=== PATIENT | male | born 1995 | race Two or more races ===

== ENCOUNTER 2018-05-31 08:48 | Emergency (ER) | payer SELFPAY ==
[2018-05-31] MEDS ORDERED: CEPHALEXIN 500 MG CAPSULE PO ONE (09:20)
[2018-05-31] MEDS ORDERED: DIPH/PERTUSS(ACELL)/TETANUS VAC/PF 0.5 ML SYR (>=10YO) IM ONE (09:20)
[2018-05-31] MEDS ORDERED: IBUPROFEN 800 MG TABLET PO ONE (09:20)
--- NOTE | 2018-05-31 09:22 | ER Document Report ---
HPI - HPI Patient complains to provider of: Puncture wound to foot Onset: Yesterday Onset/Duration: Sudden Quality of pain: Achy Pain Level: 4 Context: Patient states that he was on a deck and accidentally engaged a nail gun shooting the top of his foot through his tennis shoe into his foot. Patient states he did feel like the nail got stuck within the foot bone. Patient was wearing cloth shoes. Associated Symptoms: Other - Actual wound to dorsal aspect of right foot Exacerbated by: Standing, Movement, Walking Relieved by: Denies Similar symptoms previously: No Recently seen / treated by doctor: No - ROS ROS below otherwise negative: Yes Systems Reviewed and Negative: Yes All other systems reviewed and negative - CONSTITUTIONAL Constitutional: DENIES: Fever, Chills - NEURO Neurology: DENIES: Weakness - MUSCULOSKELETAL Musculoskeletal: REPORTS: Extremity pain - right foot. DENIES: Swelling - DERM Skin Color: Normal Skin Problems: Puncture Wound Past Medical History - General Information source: Patient - Social History Smoking Status: Current Every Day Smoker Smoking Education Provided: Yes Frequency of alcohol use: None Drug Abuse: Marijuana Occupation: [employer] Lives with: Family Family History: Reviewed & Not Pertinent Patient has suicidal ideation: No Patient has homicidal ideation: No Pulmonary Medical History: Reports: Hx Asthma Renal/ Medical History: Denies: Hx Peritoneal Dialysis Surgical Hx: Negative Vertical Provider Document - CONSTITUTIONAL Agree With Documented VS: Yes Exam Limitations: No Limitations General Appearance: WD/WN, No Apparent Distress - INFECTION CONTROL TRAVEL OUTSIDE OF THE [place] IN LAST 30 DAYS: No - HEENT HEENT: Atraumatic, Normocephalic - NECK Neck: Normal Inspection - RESPIRATORY Respiratory: No Respiratory Distress - CARDIOVASCULAR Pulses: Normal: Dorsalis pedis - MUSCULOSKELETAL/EXTREMETIES Musculoskeletal/Extremeties: MAEW, Tender - Patient with right foot tenderness to dorsal foot, patient with puncture wound, no surrounding erythema, No Edema. negative: Eccymosis - NEURO Level of Consciousness: Awake, Alert, Appropriate Motor/Sensory: No Motor Deficit - DERM Integumentary: Warm, Dry Notes: PW to dorsal aspect of right foot Course - Re-evaluation Re-evalutation: 05/31/18 Patient with puncture wound to dorsal aspect of right foot, no visible foreign body. No cellulitis at this time. Discussed with patient concern about possible open fracture given radiology findings. Patient encouraged to follow- up with orthopedics for further evaluation. Good return precautions discussed. - Vital Signs Vital signs: Temp Pulse Resp BP Pulse Ox 97.9 F 59 L 16 149/76 H 100 05/31/18 08:54 05/31/18 08:54 05/31/18 08:54 05/31/18 08:54 05/31/18 08:54 - Diagnostic Test Radiology reviewed: Pending, Image reviewed Discharge - Discharge Clinical Impression: Puncture wound of foot Qualifiers: Encounter type: initial encounter Laterality: right Qualified Code(s): S91.331A - Puncture wound without foreign body, right foot, initial encounter Foot fracture, right Qualifiers: Encounter type: initial encounter Fracture type: open Qualified Code(s): S92.901B - Unspecified fracture of right foot, initial encounter for open fracture Condition: Stable Disposition: HOME, SELF-CARE Instructions: Cephalexin ([facility]), Dressing Instructions for Open Wounds ([facility]), Fracture ([facility]), Oral Narcotic Medication ([facility]) Additional Instructions: Return immediately for any new or worsening symptoms Followup with your primary care provider, call tomorrow to make a followup appointment Follow-up with orthopedics for further evaluation, call today for an appointment. Return immediately for any increased pain, fever, purulent drainage, redness or any concerning symptoms. Prescriptions: Cephalexin Monohydrate [Keflex 500 mg Capsule] 500 mg PO Q6H 5 Days capsule Hydrocodone/Acetaminophen [[place] 5-325 mg Tablet] 1 tab PO Q6 PRN #15 tablet PRN Reason: Forms: Smoking Cessation Education, Return to Work Referrals: [facility] [Provider Group] - Follow up tomorrow
--- NOTE | 2018-05-31 10:50 | RADIOLOGY REPORT (SQ) ---
EXAM DESCRIPTION: FOOT RIGHT COMPLETE COMPLETED DATE/TIME: 05/31/2018 10:13 am REASON FOR STUDY: nail gun, nail to dorsal foot COMPARISON: None. NUMBER OF VIEWS: Three views. TECHNIQUE: AP, lateral and oblique radiographic images acquired of the right foot. LIMITATIONS: None. FINDINGS: MINERALIZATION: Normal. BONES: No acute fracture or dislocation. No worrisome bone lesions. JOINTS: No effusions. SOFT TISSUES: No soft tissue swelling. No foreign body. OTHER: No other significant finding. IMPRESSION: NEGATIVE STUDY OF THE RIGHT FOOT. NO RADIOGRAPHIC EVIDENCE OF ACUTE INJURY. TECHNICAL DOCUMENTATION: JOB ID: [id number] [employer]- All Rights Reserved Reading location - IP/workstation name: [email or web address]
[2018-05-31 11:02] VITALS: BP 113/78
== END 2018-05-31 11:02 | disposition home or self-care (01) ==
LOC: ER 08:48
DX: S92.901B Unspecified fracture of right foot, initial encounter for open fracture (principal); W45.0XXA Nail entering through skin, initial encounter; F17.200 Nicotine dependence, unspecified, uncomplicated; J45.909 Unspecified asthma, uncomplicated
CPT/HCPCS: 90471; 90715; 99283